=== PATIENT | female | born 2000 | race Caucasian/White ===

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

== ENCOUNTER 2020-11-26 20:25 | Emergency (ER) | payer OTHER ==
[~2020-11-26] VITALS: Ht 162.6 cm; Wt 70.5 kg
[2020-11-26] MEDS ORDERED: DEXAMETHASONE 4 MG TABLET PO ONE (21:00)
[2020-11-26 21:44] VITALS: BP 120/46
[2020-11-26] MEDS ORDERED: DEXAMETHASONE 4 MG TABLET ONE ×2 (22:28→22:29)
--- NOTE | 2020-11-26 22:31 | NUR ---
PT MEDICATED PER RADHA, DC INSTRUCTIONS GIVEN ALL QUESTIONS ADDRESSED
== END 2020-11-26 22:33 | disposition home or self-care (01) ==
LOC: ED 20:55
DX: J02.8 Acute pharyngitis due to other specified organisms (principal)
CPT/HCPCS: 87081; 87880; 99283